=== PATIENT | male | born 1985 | race Caucasian/White ===

== ENCOUNTER 2018-06-04 16:35 | Emergency (ER) | payer OTHER ==
[~2018-06-04] VITALS: Ht 180.3 cm; Wt 77.1 kg
== END 2018-06-04 19:12 | disposition home or self-care (01) ==
LOC: ER 16:35
DX: J32.8 Other chronic sinusitis (principal)

== ENCOUNTER 2019-03-30 20:36 | Emergency (ER) | payer OTHER ==
[~2019-03-30] VITALS: Ht 180.3 cm; Wt 77.1 kg
== END 2019-03-30 22:52 | disposition home or self-care (01) ==
LOC: ER 20:36
DX: K59.09 Other constipation (principal); R10.31 Right lower quadrant pain; M54.89 Other dorsalgia

== ENCOUNTER 2021-07-14 14:55 | Outpatient (CLI) | payer OTHER | END 2021-07-14 15:20 | disposition home or self-care (01) | LOC: PPH VACUNA 14:55 | PROVIDERS: ATTEND Emergency Medicine Pediatric Emergency Medicine | DX: Z23 Encounter for immunization (principal) ==